=== PATIENT | male | born 1965 | race Caucasian/White ===

== ENCOUNTER 2016-04-17 14:46 | Emergency (ER) | payer OTHER ==
--- NOTE | ~2016-04-17 | EKG ---
PATIENT: DESTINI GONZALES UNIT #: [id number] Ventricular Rate: 71 BPM Atrial Rate: 71 BPM P-R Interval: 116 ms QRS Duration: 90 ms Q-T Interval: 430 ms QTC Calculation(Bezet): 467 ms P Slaughter: 81 degrees Calculated R Slaughter: 72 degrees Calculated T Slaughter: 77 degrees Diagnosis Line: Normal sinus rhythm with sinus arrhythmia Diagnosis Line: Normal ECG Diagnosis Line: No previous ECGs available Diagnosis Line: Confirmed by ANALY IRENE MD ([id number]) on 04/18/2016 Diagnosis Line: 5:41:00 PM INTERPRETING MD: MARIA VICTORIA ARAUJO
[2016-04-17 14:39] LABS: URINE SOURCE CLEAN CATCH
[2016-04-17 14:41] LABS: BASOPHIL# 0.1 X10e3 (0-0.3); BASOPHIL% 0.5 % (0-2.5); EOSINOPHIL# 0.1 X10e3 (0-0.7); HEMATOCRIT 46.4 % (38.0-50.0); HEMOGLOBIN 15.6 gm/dL (13.0-16.0); LYMPHOCYTE% 14.3 % (17.0-45.0); MEAN CORPUSCULAR HEMOGLOBIN 30.9 PG (28-34); MEAN CORPUSCULAR HGB CONC 33.6 g/dL (30-36); MEAN PLATELET VOLUME 8.6 FL (6.5-11.5); MONOCYTE# 0.9 X10e3 (0-1.0); MONOCYTE% 6.2 % (3.0-12.0); NEUTROPHIL# 10.7 X10e3 (1.5-7.1); PLATELET COUNT 249 X10e3 (140-420); RED BLOOD COUNT 5.05 X10e (3.90-5.60); RED CELL DISTRIBUTION WIDTH 13.2 % (11.0-15.5); WHITE BLOOD COUNT 13.7 X10e3 (4.0-10.5)
[~2016-04-17 14:46] MED LIST: AMOXICILLIN875 MG PO; FLEXERIL PO; IBUPROFEN PO; KEFLEX500 MG PO; TYLOX 5/500 CAP1 CAP PO; VICODIN 5/500 T1 TAB PO
[2016-04-17 14:50] LABS: URINE APPEARANCE CLEAR; URINE BILIRUBIN NEG (NEG); URINE BLOOD NEG (NEG); URINE COLOR YELLOW; URINE GLUCOSE NEG (NEG); URINE KETONE 1+ (NEG); URINE LEUKOCYTE ESTERASE NEG (NEG); URINE NITRATE NEG (NEG); URINE PROTEIN NEG (NEG); URINE SPECIFIC GRAVITY 1.014 (1.003-1.035)
[2016-04-17 14:56] LABS: CULTURE INDICATED? NO
[2016-04-17 14:57] LABS: DIFF IND NO
[2016-04-17 15:10] LABS: AMPHETAMINE NEG (NEG); BARBITURATES NEG (NEG); BENZODIAZEPINES NEG (NEG); COCAINE NEG (NEG); MARIJUANA POS (NEG); OPIATES NEG (NEG); TRICYCLIC ANTIDEPRESSANTS NEG (NEG); U METHADONE NEG (NEG)
[2016-04-17 15:12] LABS: ALBUMIN SERUM 4.6 g/dL (3.5-5.0); ALKALINE PHOSPHATASE 68 U/L (32-92); ALT (SGPT) 17 U/L (10-40); AST (SGOT) 23 U/L (10-42); BILIRUBIN, DIRECT 0.1 mg/dL (0.0-0.2); BILIRUBIN,INDIRECT 0.7 mg/dL (0.0-0.9); BILIRUBIN,TOTAL 0.8 mg/dL (0.2-2.0); BLOOD UREA NITROGEN 17 mg/dL (9-23); BUN/CREATININE RATIO 18.88; CALCIUM SERUM 9.4 mg/dL (8.4-10.2); CARBON DIOXIDE 26 mmol/L (22-31); CHLORIDE 100 mmol/L (100-111); CREATININE SERUM 0.9 mg/dL (0.6-1.4); GLOM FILT RATE Estimated ABOVE60 mL/min (>60); GLUCOSE FASTING 110 mg/dL (70-110); POTASSIUM 3.7 mmol/L (3.5-5.1); PROTEIN TOTAL SERUM 7.6 g/dL (6.0-8.3); SODIUM 136 mmol/L (135-145)
== END 2016-04-17 17:10 | disposition home or self-care (01) ==
LOC: CED 14:46
PROVIDERS: Emergency Medicine
DX: F41.0 Panic disorder [episodic paroxysmal anxiety] (principal)
CPT/HCPCS: 36415; 80048; 80076; 80307; 81003; 82947; 85025; 93005; 96361; 96374; 99284; J2060

== ENCOUNTER 2016-04-22 20:32 | Emergency (ER) | payer OTHER ==
--- NOTE | ~2016-04-22 | CT71 ---
[facility] A Service [facility] RADIOLOGY TEXT RESULTS PATIENT: DESTINI GONZALES LOCATION: [facility] : 65 UNIT #: [id number] AGE: [address]: Gary Gonzales DO SEX: M ORDER DR: [id number] [facility] [address] [place], [place] [address] [id number] E MR#: [id number] Acc #: [id number] NAME: DESTINI GONZALES. : 1965 SEX: M STUDY DATE/TIME: 04/22/2016 20:10 UNIT: [facility] ROOM: STUDY DESCRIPTION: CT Head Wo Contrast Attending Physician: Gary Gonzales D.O. Ordering Physician: Gary Gonzales D.O. Primary Care Physician: Primary Care Physician No MEDICAL IMAGING REPORT This report is preliminary unless electronic signature is present EXAM Noncontrast head CT HISTORY Anxiety, panic attack today. Vomiting in waiting room. TECHNIQUE Axial noncontrast images were obtained from the skull base to the vertex. This CT exam was performed with one or more of the following radiation dose reduction techniques: automatic exposure control, adjustment of mA and/or kV according to patient size, and iterative reconstruction. FINDINGS Ventricular size and configuration are normal. There is no evidence of acute infarct or hemorrhage. There are no extraaxial fluid collections. No mass lesion or mass effect is seen. There are no skull fractures. IMPRESSION Normal noncontrast head CT. Dictated by... Pola Edwards M.D. THIS IS AN ELECTRONICALLY VERIFIED REPORT Pola Edwards M.D. at 04/23/2016 6:32 PM BILL/ayaka TD: 04/23/2016 09:25 [facility] A Service [facility] RADIOLOGY TEXT RESULTS PATIENT: DESTINI GONZALES LOCATION: [facility] : 65 UNIT #: [id number] AGE: [address]: Hottman,Gary M DO SEX: M ORDER DR: SIMI #: [id number] MEDICAL IMAGING REPORT COPY
--- NOTE | ~2016-04-22 | EKG ---
PATIENT: DESTINI GONZALES UNIT #: [id number] Ventricular Rate: 78 BPM Atrial Rate: 78 BPM P-R Interval: 114 ms QRS Duration: 90 ms Q-T Interval: 400 ms QTC Calculation(Bezet): 456 ms P Henderson: 73 degrees Calculated R Henderson: 72 degrees Calculated T Henderson: 77 degrees Diagnosis Line: Normal sinus rhythm Diagnosis Line: Nonspecific ST abnormality Diagnosis Line: Abnormal ECG Diagnosis Line: When compared with ECG of 17-APR-2016 14:16, Diagnosis Line: No significant change was found Diagnosis Line: Confirmed by NICOLASA CHUA MD ([id number]) on Diagnosis Line: 04/23/2016 8:18:48 AM INTERPRETING MD: TOMA ARAUJO
--- NOTE | ~2016-04-22 | CR63 ---
[facility] A Service of [facility] RADIOLOGY TEXT RESULTS PATIENT: DESTINI GONZALES LOCATION: [facility] : 65 UNIT #: [id number] AGE: [address]: Gary Gonzales DO SEX: M ORDER DR: [id number] [facility] [address] [place], [place] [address] [id number] E MR#: [id number] Acc #: [id number] NAME: DESTINI GONZALES. : 1965 SEX: M STUDY DATE/TIME: 04/22/2016 20:18 UNIT: [facility] ROOM: STUDY DESCRIPTION: CR Chest 2 View Attending Physician: Gary Gonzales D.O. Ordering Physician: Gary Gonzales D.O. Primary Care Physician: No Primary Care Physician MEDICAL IMAGING REPORT This report is preliminary unless electronic signature is present EXAM 2 view chest HISTORY Shortness of air, weakness, anxiety, panic attack for 2 days FINDINGS 2 views of the chest demonstrate moderate lung volume satisfactory technique. No infiltrates or effusions. Heart, mediastinum, great vessels unremarkable. Mild degenerative changes thoracic spine. IMPRESSION No active disease Dictated by... Pola Edwards M.D. THIS IS AN ELECTRONICALLY VERIFIED REPORT Pola Edwards M.D. at 04/23/2016 6:33 PM Lexii TD: 04/23/2016 09:32 JOB #: [id number] MEDICAL IMAGING REPORT COPY
[2016-04-22 20:16] LABS: BASOPHIL# 0.1 X10e3 (0-0.3); BASOPHIL% 0.3 % (0-2.5); HEMATOCRIT 46.2 % (38.0-50.0); HEMOGLOBIN 15.3 gm/dL (13.0-16.0); LYMPHOCYTE# 1.1 X10e3 (1.0-3.5); LYMPHOCYTE% 6.8 % (17.0-45.0); MEAN CELL VOLUME 93.2 FL (83-96); MEAN CORPUSCULAR HEMOGLOBIN 30.9 PG (28-34); MEAN CORPUSCULAR HGB CONC 33.2 g/dL (30-36); MEAN PLATELET VOLUME 8.8 FL (6.5-11.5); MONOCYTE# 0.5 X10e3 (0-1.0); MONOCYTE% 2.9 % (3.0-12.0); NEUTROPHIL# 14.4 X10e3 (1.5-7.1); PLATELET COUNT 260 X10e3 (140-420); RED BLOOD COUNT 4.95 X10e (3.90-5.60); RED CELL DISTRIBUTION WIDTH 13.4 % (11.0-15.5)
[2016-04-22 20:17] LABS: DIFF IND YES
[2016-04-22 20:38] LABS: ACETAMINOPHEN <10 ug/mL; ALBUMIN SERUM 4.4 g/dL (3.5-5.0); ALCOHOL BLOOD <5 mg/dL (0); ALKALINE PHOSPHATASE 75 U/L (32-92); ALT (SGPT) 20 U/L (10-40); AST (SGOT) 21 U/L (10-42); BILIRUBIN, DIRECT 0.1 mg/dL (0.0-0.2); BILIRUBIN,INDIRECT 0.6 mg/dL (0.0-0.9); BILIRUBIN,TOTAL 0.7 mg/dL (0.2-2.0); BLOOD UREA NITROGEN 13 mg/dL (9-23); BUN/CREATININE RATIO 21.66; CALCIUM SERUM 9.4 mg/dL (8.4-10.2); CARBON DIOXIDE 25 mmol/L (22-31); CHLORIDE 102 mmol/L (100-111); CREATININE SERUM 0.6 mg/dL (0.6-1.4); GLOM FILT RATE Estimated ABOVE60 mL/min (>60); GLUCOSE FASTING 120 mg/dL (70-110); POTASSIUM 3.4 mmol/L (3.5-5.1); PROTEIN TOTAL SERUM 7.4 g/dL (6.0-8.3); SALICYLATE <4.0 mg/dL; SODIUM 138 mmol/L (135-145)
[2016-04-22 20:39] LABS: PLATELET ESTIMATE NORMAL (NORMAL); RBC NORMAL YES
[2016-04-22 20:47] LABS: URINE SOURCE CLEAN CATCH
[2016-04-22 20:54] LABS: URINE APPEARANCE CLEAR; URINE BILIRUBIN NEG (NEG); URINE BLOOD NEG (NEG); URINE COLOR YELLOW; URINE GLUCOSE 100 MG/DL (NEG); URINE KETONE 2+ (NEG); URINE LEUKOCYTE ESTERASE NEG (NEG); URINE NITRATE NEG (NEG); URINE PROTEIN NEG (NEG); URINE SPECIFIC GRAVITY 1.016 (1.003-1.035)
[2016-04-22 21:01] LABS: CULTURE INDICATED? NO
[2016-04-22 21:03] LABS: AMPHETAMINE NEG (NEG); BARBITURATES NEG (NEG); BENZODIAZEPINES POS (NEG); COCAINE NEG (NEG); MARIJUANA POS (NEG); OPIATES NEG (NEG); TRICYCLIC ANTIDEPRESSANTS NEG (NEG); U METHADONE NEG (NEG)
[2016-04-22 21:07] LABS: POC - CKMB <1.0 ng/mL (0.0-7.9); POC - TROPONIN <0.05 ng/mL (<=0.05)
[2016-04-22 22:26] LABS: POC - CKMB 1.1 ng/mL (0.0-7.9); POC - TROPONIN <0.05 ng/mL (<=0.05)
== END 2016-04-23 00:06 | disposition home or self-care (01) ==
LOC: CED 20:32
PROVIDERS: Emergency Medicine
DX: F41.9 Anxiety disorder, unspecified (principal); R51 Headache; R11.10 Vomiting, unspecified; F17.200 Nicotine dependence, unspecified, uncomplicated
CPT/HCPCS: 36415; 70450; 71020; 80048; 80076; 80307; 81003; 82553; 82947; 84484; 85025; 93005; 99283; G0480